=== PATIENT | female | born 1980 | race Caucasian/White ===

== ENCOUNTER 2017-08-22 14:25 | Emergency (ER) | payer SELFPAY ==
[2017-08-22] MEDS ORDERED: Sodium Chloride 0.9% 10 ML Syringe FLUSH PRN (14:49)
[2017-08-22] MEDS ORDERED: Sodium Chloride 0.9% 2.5 ML Syringe FLUSH PRN (14:49)
--- NOTE | 2017-08-22 14:52 | EDM.PDOC ---
ED HPI GENERAL MEDICAL PROBLEM - General Chief Complaint: Back Pain or Injury Stated Complaint: LOWER BACK PAIN Time Seen by Provider: 08/22/17 14:46 Source of Information: Reports: Patient History Limitations: Reports: No Limitations - History of Present Illness INITIAL COMMENTS - FREE TEXT/NARRATIVE: HISTORY AND PHYSICAL: []37-year-old female presenting with back pain and points to her flank History of Present Illness: []She has had pain for the last 2 weeks Patient has polycystic kidneys was diagnosed in 2005 Her branch chief in [place] has been getting ultrasounds every 6 months. She moved here in February of this year and has not followed up with a branch chief. Patient has had a hysterectomy Review of Systems: As per history of present illness and below otherwise all systems reviewed and negative. Past medical history: As per history of present illness and as reviewed below otherwise noncontributory. Surgical history: As per history of present illness and as reviewed below otherwise noncontributory. Social history: No reported history of drug or alcohol abuse. Family history: As per history of present illness and as reviewed below otherwise noncontributory. Physical exam: Alert and oriented female answering questions appropriately in full sentences without any shortness of breath HEENT: Atraumatic, normocehpalic, pupils reactive, negative for conjunctival pallor or scleral icterus, mucous membranes moist, throat clear, neck supple, nontender, trachea midline. Lungs: Clear to auscultation, breath sounds equal bilaterally, chest non tender. Heart: S1S2, regular, negative for clicks, rubs, or JVD. Abdomen: Soft, nondistended, nontender. Negative for masses or hepatossplenmegaly. Positive for bilateral costovertebral tenderness with light palpation. Pelvis: Stable nontender. Genitourinary: Deferred. Rectal: Deferred Extremities: Atraumatic, negative for cords or calf pain. Neurovascular unremarkable. Neuro: Awake, alert, oriented. Cranial nerves II through XII unremarkable. Cerebellum unremarkable. Motor and sensory unremarkable throughout. Exam nonfocal. Diagnostics: [CBC CMP UA urine culture hCG] Therapeutics: [] Impression: [pyleonephritis] Plan: []discharge to home ciprofloxicin 500 mg twice daily 7 days Follow-up with your primary care provider Definitive disposition and diagnosis as appropriate pending reevaluation and review of above. Onset: Gradual Lower Back Pain Score (Numeric/FACES): 7 - Related Data Allergies Allergy/AdvReac Type Severity Reaction Status Date / Time No Known Allergies Allergy Verified 08/22/17 14:41 Home Meds: Home Meds Ciprofloxacin [Ciprofloxacin HCl] 500 mg PO BID #14 tablet 08/22/17 [Rx] Past Medical History Genitourinary History: Reports: Pyelonephritis, Other (See Below) Other Genitourinary History: polycystic kidney disease - Infectious Disease History Infectious Disease History: Reports: Chicken Pox - Past Surgical History GI Surgical History: Reports: Cholecystectomy Female Surgical History: Reports: Hysterectomy Social & Family History - Family History Family Medical History: Noncontributory - Tobacco Use Smoking Status *Q: Current Every Day Smoker Years of Tobacco use: 22 Packs/Tins Daily: 1.5 - Recreational Drug Use Recreational Drug Use: No ED ROS GENERAL - Review of Systems Review Of Systems: ROS reveals no pertinent complaints other than HPI. ED EXAM,LOWER BACK PAIN/INJURY - Physical Exam Exam: See Below (See dictation) Course - Vital Signs Last Recorded V/S: Last Vital Signs Temp 36.9 C 08/22/17 14:38 Pulse 55 L 08/22/17 15:25 Resp 18 08/22/17 15:25 BP 116/66 08/22/17 15:25 Pulse Ox 98 08/22/17 15:25 - Orders/Labs/Meds Orders: Active Orders 24 hr Category Date Time Status CULTURE URINE [RM] Stat Lab 08/22/17 16:00 Received Sodium Chloride 0.9% [Saline Flush] Med 08/22/17 14:49 Active 10 ml FLUSH ASDIRECTED PRN Sodium Chloride 0.9% [Saline Flush] Med 08/22/17 14:49 Active 2.5 ml FLUSH ASDIRECTED PRN Saline Lock Insert [OM.PC] Stat Oth 08/22/17 14:48 Ordered Medication Orders Sodium Chloride (Saline Flush) 10 ml FLUSH ASDIRECTED PRN PRN Reason: Keep Vein Open Last Admin: 08/22/17 15:30 Dose: 10 ml Sodium Chloride (Saline Flush) 2.5 ml FLUSH ASDIRECTED PRN PRN Reason: Keep Vein Open Last Admin: 08/22/17 15:31 Dose: 2.5 ml Labs: Laboratory Tests 08/22/17 08/22/17 08/22/17 Range/Units 14:57 14:57 16:00 WBC 9.12 (4.0-11.0) K/uL RBC 4.55 (4.30-5.90) M/uL Hgb 14.2 (12.0-16.0) g/dL Hct 42.6 (36.0-46.0) % MCV 93.6 (80.0-98.0) fL MCH 31.2 (27.0-32.0) pg MCHC 33.3 (31.0-37.0) g/dL RDW Std Deviation 46.8 (28.0-62.0) fl RDW Coeff of Yandel 14 (11.0-15.0) % Plt Count 244 (150-400) K/uL MPV 9.70 (7.40-12.00) fL Neut % (Auto) 70.1 (48.0-80.0) % Lymph % (Auto) 20.5 (16.0-40.0) % [place] % (Auto) 8.6 (0.0-15.0) % Eos % (Auto) 0.4 (0.0-7.0) % Baso % (Auto) 0.4 (0.0-1.5) % Neut # (Auto) 6.4 H (1.4-5.7) K/uL Lymph # (Auto) 1.9 (0.6-2.4) K/uL [place] # (Auto) 0.8 (0.0-0.8) K/uL Eos # (Auto) 0.0 (0.0-0.7) K/uL Baso # (Auto) 0.0 (0.0-0.1) K/uL Nucleated RBC % 0.0 /100WBC Nucleated RBCs # 0 K/uL Sodium 140 (136-146) mmol/L Potassium 4.3 (3.5-5.1) mmol/L Chloride 106 (98-110) mmol/L Carbon Dioxide 25 (21-31) mmol/L BUN 16 (6.0-23.0) mg/dL Creatinine 0.7 (0.6-1.5) mg/dL Est Cr Clr Drug Dosing 94.10 mL/min Estimated GFR (MDRD) > 60.0 ml/min Glucose 147 H (60-110) mg/dL Calcium 9.5 (8.8-10.8) mg/dL Total Bilirubin 0.3 (0.1-1.5) mg/dL AST 29 (5-40) IU/L ALT 39 (8-54) IU/L Alkaline Phosphatase 72 (40-150) Total Protein 7.3 (6.0-8.0) g/dL Albumin 3.9 (3.5-5.0) g/dL Globulin 3.4 (2.0-3.5) g/dL Albumin/Globulin Ratio 1.2 L (1.3-2.8) HCG, Quant < 1.2 mIU/mL Urine Color YELLOW Urine Appearance CLEAR Urine pH 7.0 (5.0-8.0) Ur Specific [place] 1.020 (1.001-1.035) Urine Protein NEGATIVE (NEGATIVE) mg/dL Urine Glucose (UA) NEGATIVE (NEGATIVE) mg/dL Urine Ketones NEGATIVE (NEGATIVE) mg/dL Urine Occult Blood NEGATIVE (NEGATIVE) Urine Nitrite NEGATIVE (NEGATIVE) Urine Bilirubin NEGATIVE (NEGATIVE) Urine Urobilinogen 0.2 (<2.0) EU/dL Ur Leukocyte Esterase NEGATIVE (NEGATIVE) Urine RBC 0-2 (0-2/HPF) Urine WBC 0-2 (0-5/HPF) Ur Epithelial Cells FEW (NONE-FEW) Urine Bacteria RARE (NEGATIVE) Urine Mucus LIGHT (NONE-MOD) Meds: Medications Generic Name Dose Route Start Last Admin Trade Name Freq PRN Reason Stop Dose Admin Sodium Chloride 10 ml 08/22/17 14:49 08/22/17 15:30 Saline Flush FLUSH 10 ml ASDIRECTED PRN Administration Keep Vein Open Sodium Chloride 2.5 ml 08/22/17 14:49 08/22/17 15:31 Saline Flush FLUSH 2.5 ml ASDIRECTED PRN Administration Keep Vein Open Discontinued Medications Generic Name Dose Route Start Last Admin Trade Name Freq PRN Reason Stop Dose Admin Morphine Sulfate 2 mg 08/22/17 16:33 Morphine IVPUSH 08/22/17 16:34 ONETIME ONE Ondansetron HCl 4 mg 08/22/17 16:33 Zofran IVPUSH 08/22/17 16:34 ONETIME ONE Departure - Departure Time of Disposition: 16:36 Disposition: Home, Self-Care 01 Condition: Good Clinical Impression: Pyelonephritis - Discharge Information Prescriptions: Ciprofloxacin [Ciprofloxacin HCl] 500 mg PO BID #14 tablet Referrals: PCP,None [Primary Care Provider] - Forms: ED Department Discharge Additional Instructions: The following information is given to patients seen in the emergency department who are being discharged to home. This information is to outline your options for follow-up care. We provide all patients seen in our emergency department with a follow-up referral. The need for follow-up, as well as the timing and circumstances, are variable depending upon the specifics of your emergency department visit. If you don't have a primary care physician on staff, we will provide you with a referral. We always advise you to contact your personal physician following an emergency department visit to inform them of the circumstance of the visit and for follow-up with them and/or the need for any referrals to a consulting specialist. The emergency department will also refer you to a specialist when appropriate. This referral assures that you have the opportunity for followup care with a specialist. All of these measure are taken in an effort to provide you with optimal care, which includes your followup. Under all circumstances we always encourage you to contact your private physician who remains a resource for coordinating your care. When calling for followup care, please make the office aware that this follow-up is from your recent emergency room visit. If for any reason you are refused follow-up, please contact the [facility] emergency department at and asked to speak to the emergency department charge nurse. You have had pyelonephritis in the emergency department today Ciprofloxacin 500 mg twice daily 7 days has been sent to your pharmacy electronically. Please follow-up with your branch chief [facility] is the closest facility with nephrology available [facility] Doctor Darnell Rodriguez and/ or [facility] [address] [place] [address] - - My Orders Last 24 Hours: My Active Orders 08/22/17 14:48 Saline Lock Insert [OM.PC] Stat 08/22/17 14:49 Sodium Chloride 0.9% [Saline Flush] 10 ml FLUSH ASDIRECTED PRN Sodium Chloride 0.9% [Saline Flush] 2.5 ml FLUSH ASDIRECTED PRN 08/22/17 16:00 CULTURE URINE [RM] Stat - Assessment/Plan Last 24 Hours: My Active Orders 08/22/17 14:48 Saline Lock Insert [OM.PC] Stat 08/22/17 14:49 Sodium Chloride 0.9% [Saline Flush] 10 ml FLUSH ASDIRECTED PRN Sodium Chloride 0.9% [Saline Flush] 2.5 ml FLUSH ASDIRECTED PRN 08/22/17 16:00 CULTURE URINE [RM] Stat
[2017-08-22 15:25] LABS: CHLORIDE,CL 106 mmol/L (98-110); SODIUM,NA 140 mmol/L (136-146)
--- NOTE | 2017-08-22 15:35 | US ---
EXAMINATION: Renal ultrasound HISTORY: Pain COMPARISON: None TECHNIQUE: Grayscale, spectral Doppler and color Doppler images obtained bilaterally. FINDINGS: The right kidney measures at least 10.4 and the left kidney measures at least 10.8 cm pole- to-pole without evidence of hydronephrosis. The renal cortical echotexture appears normal. No renal c ysts identified. The medullary areas in the hilum of both kidneys appear echogenic. There is a focal 2.5 cm area of shadowing within the mid left kidney. Normal color Doppler flow bilaterally. Urinary bladder appears normal with bilateral urine jets identified. IMPRESSION: 1. No acute findings. 2. 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 3. No cystic changes noted bilaterally.
[2017-08-22] MEDS ORDERED: Morphine 2 MG/ML Syringe IVPUSH ONE (16:33)
[2017-08-22] MEDS ORDERED: Ondansetron 4 MG/2 ML SDV IVPUSH ONE (16:33)
== END 2017-08-22 17:20 | disposition home or self-care (01) ==
LOC: MW.ED 14:25
DX: N12 Tubulo-interstitial nephritis, not specified as acute or chronic (principal); F17.210 Nicotine dependence, cigarettes, uncomplicated; Z90.710 Acquired absence of both cervix and uterus
CPT/HCPCS: 36415; 76775; 80053; 81001; 84702; 85025; 87086; 87088; 87186; 96374; 96375; 99284; J2270; J2405

== ENCOUNTER 2018-01-03 12:41 | Emergency (ER) | payer SELFPAY ==
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
[2018-01-03] MEDS ORDERED: Albuterol/Ipratropium 3.0-0.5 MG/3 ML Neb Soln NEB ONE (13:04)
== END 2018-01-03 13:35 | disposition home or self-care (01) ==
LOC: MW.ED 12:41
DX: J20.9 Acute bronchitis, unspecified (principal); F41.9 Anxiety disorder, unspecified; F17.210 Nicotine dependence, cigarettes, uncomplicated; Z79.899 Other long term (current) drug therapy
CPT/HCPCS: 94640; 99283-25

== ENCOUNTER 2018-01-12 19:42 | Emergency (ER) | payer MEDICAID ==
[2018-01-12] MEDS ORDERED: Sodium Chloride 0.9% 1,000 ML IV ONE (19:51)
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
[2018-01-12] MEDS ORDERED: Ketorolac 30 MG/ML SDV IVPUSH ONE (20:49)
[2018-01-12] MEDS ORDERED: Iopamidol 755 MG/ML 200 ML Multipack Bottle IVPUSH STA (20:53)
[2018-01-12 21:07] LABS: CHLORIDE,CL 107 mmol/L (98-107); SODIUM,NA 140 mmol/L (136-145)
--- NOTE | 2018-01-14 14:55 | CT ---
EXAM DATE: 01/12/18 PATIENT'S AGE: 37 Patient: SRIRAM DAS Facility: [place], [place] Site . Site : [id number] Study: CT Chest Angio [id number]/[id number] 9:39:11 PM Ordering Physician: Gutierrez Larose Final Report: INDICATION: Shortness of breath, chest pain began for 5 days prior TECHNIQUE: CT chest with i.v. contrast using pulmonary angiographic technique. Coronal and sagittal reformats were obtained. CONTRAST: Intravenous COMPARISON: None FINDINGS: Cardiovascular: The pulmonary arteries are unremarkable in enhancement with no evidence of acute pulmonary embolism. The heart has an unremarkable appearance and size. No sign of aneurysm or dissection in the thoracic aorta. Mediastinum: No mass or adenopathy seen. Lungs: Both lungs are unremarkable in appearance. Pleura and pericardium: No sign of pleural effusion seen. No significant pericardial effusion is present. Chest wall and axilla: No mass or adenopathy seen. Bones: Unremarkable for age. Upper abdomen: Unremarkable. IMPRESSION: 1. No CT evidence of pulmonary emboli seen. Please note that all CT scans at this facility use dose modulation, iterative reconstruction, and/or weight-based dosing when appropriate to reduce radiation dose to as low as reasonably achievable. Dictated by: Blake Ramirez MD @ 01/12/2018 21:48:29 (Electronic Signature) Report Signed by Proxy. [facility]
== END 2018-01-12 22:11 | disposition home or self-care (01) ==
LOC: MW.ED 19:42
DX: R07.89 Other chest pain (principal); F17.210 Nicotine dependence, cigarettes, uncomplicated; Z79.899 Other long term (current) drug therapy
CPT/HCPCS: 71275; 80053; 83880; 84484; 85025; 85610; 93005; 96361; 96374; 99285; J1885; J7040; Q9967